=== PATIENT | male | born 1935 ===

== ENCOUNTER 2021-07-14 20:09 | Emergency (ER) | payer MEDICARE ==
[2021-07-14 20:23] VITALS: BP 142/76
--- NOTE | 2021-07-14 20:30 | ED Physician Documentation ---
PD HPI URI - Stated complaint Stated Complaint: HARD OF BREATHING - Chief complaint Chief Complaint: Resp - History obtained from History obtained from: Patient, Family - Additional information Additional information: 86-year-old gentleman with dementia presents accompanied by his son requesting COVID testing. Since yesterday he has had cough, runny nose, and congestion. No fevers or chills. Review of Systems Constitutional: denies: Fever, Chills Nose: reports: Rhinorrhea / runny nose, Congestion Throat: denies: Sore throat Respiratory: reports: Cough. denies: Dyspnea PD PAST MEDICAL HISTORY - Present Medications Home Medications: Ambulatory Orders Medication Instructions Recorded Confirmed No Known Home Medications 07/14/21 07/14/21 - Allergies Allergies/Adverse Reactions: Allergies Allergy/AdvReac Type Severity Reaction Status Date / Time No Known Drug Allergies Allergy Verified 07/14/21 20:23 PD ED PE NORMAL - Vitals Vital signs reviewed: Yes - General General: Other (Jovial but demented gentleman in bed in no distress.) - HEENT HEENT: Pharynx benign - Neck Neck: Supple, no meningeal sign, No bony TTP - Cardiac Cardiac: RRR, No murmur - Respiratory Respiratory: No respiratory distress, Clear bilaterally - Abdomen Abdomen: Non tender - Derm Derm: Normal color, Warm and dry - Extremities Extremities: No edema, No calf tenderness / cord Results - Vitals Vitals: Vital Signs - 24 hr 07/14/21 20:17 Temperature 36.8 C Heart Rate 93 Respiratory 18 Rate Blood Pressure 142/76 H O2 Saturation 96 Oxygen O2 Source Room air Departure - Departure Disposition: Home, Self Care Clinical Impression: Upper respiratory tract infection Qualifiers: URI type: unspecified viral URI Qualified Code(s): J06.9 - Acute upper respiratory infection, unspecified Condition: Good Record reviewed to determine appropriate education?: Yes Instructions: ED Upper Resp Infec No Abx Tx Comments: You have a Covid test pending. You need to self quarantine until the result is done and negative. Do not leave your house. Do not get near anybody. The results should be done in 48 to 72 hours. We will call with a positive result, the fastest way to get a negative result for confirmation though is to go to the hospital website at [email or web address], click on the my [facility] tab and sign up for the patient portal. If any friends or family get sick and would like to have a Covid test done, but do not have signs or symptoms that would necessitate being hospitalized, there are multiple local options for Covid testing. [facility] keeps an updated list of testing and vaccination options at: [email or web address].
== END 2021-07-14 20:38 | disposition home or self-care (01) ==
LOC: ED 20:09
DX: J06.9 Acute upper respiratory infection, unspecified (principal); F03.90 Unspecified dementia, unspecified severity, without behavioral disturbance, psychotic disturbance, mood disturbance, and anxiety
CPT/HCPCS: 99282; 99283; U0004